=== PATIENT | female | born 1955 | race Asian ===

== ENCOUNTER 2016-08-02 17:13 | Emergency (ER) | payer SELFPAY ==
[~2016-08-02] VITALS: Ht 160 cm; Wt 52.2 kg
[2016-08-02 19:40] LABS: DEFINITIVE VIEW TRANSMISSION; Hematocrit 30.6 % (36.0-46.0); Hemoglobin 9.5 g/dL (12.2-16.2); Mean Corpuscular Hemoglobin 19.8 pg (28.0-32.0); Mean Corpuscular Volume 63.8 fL (80.0-100.0); Platelet Count (auto) 446 10^3/uL (140-450); Red Cell Distribution Width 19.9 % (11.6-16.0); SUSPECT VIEW TRANSMISSION; White Blood Cell 10.1 10^3/uL (4.4-10.8)
[2016-08-02 19:42] LABS: Metamyelocytes % 0; Myelocytes % 0; Promyelocytes % 0; Reactive Lymphocytes 0
[2016-08-02 19:53] LABS: Albumin 2.8 g/dL (3.4-5.0); BUN/Creatinine Ratio 25.4; Bilirubin, Total 0.7 mg/dL (0.2-1.0); Calcium 8.4 mg/dL (8.5-10.1); Potassium 3.5 mmol/L (3.5-5.1); Total Protein 6.7 g/dL (6.4-8.2)
[2016-08-02 21:29] LABS: Platelet Estimate Adequate
[2016-08-02 21:30] LABS: Anisocytosis Moderate; Burr Cells FEW; Hypochromia Marked; Microcytosis Marked; Ovalocytes FEW; Tear Drop Cells FEW
[2016-08-03] MEDS ORDERED: ONDANSETRON HCL 4 MG/2 ML VIAL IV ONE (00:45)
[2016-08-03] MEDS ORDERED: NALBUPHINE HCL 10 MG/1ml INJECTION IV ONE (00:45)
[2016-08-03] MEDS ORDERED: LORazepam 2MG/ML-1ML VIAL IV ONE ×2 (01:45→02:00)
[2016-08-03] MEDS: FLEET ENEMA(ADULT) 135 ML PR ONE ×2 (02:46→03:30)
[2016-08-03 04:03] VITALS: BP 112/76
== END 2016-08-03 04:24 | disposition home or self-care (01) ==
LOC: ER 17:30
DX: K59.00 Constipation, unspecified (principal); R10.31 Right lower quadrant pain; F17.210 Nicotine dependence, cigarettes, uncomplicated; F11.10 Opioid abuse, uncomplicated; R11.2 Nausea with vomiting, unspecified
CPT/HCPCS: 36415; 74176; 80053; 82150; 83690; 85007; 85027; 93005; 96374; 96375; 99285; J2300; J2405; J7030

== ENCOUNTER 2016-09-29 12:50 | Inpatient (IN) | payer OTHER ==
[~2016-09-29] VITALS: Ht 157.5 cm; Wt 41.9 kg
[2016-09-29 13:47] LABS: Basophils # (auto) 0 uL; Basophils % (auto) 0.4 % (0.0-2.0); CONDITION AutoValidated; DEFINITIVE SEE PRINTOUT; Eosinophils # (auto) 0 uL; Eosinophils % (auto) 0.1 % (0.0-7.0); Hematocrit 33.6 % (36.0-46.0); Hemoglobin 10.6 g/dL (12.2-16.2); Lymphocytes # (auto) 2.6 uL; Lymphocytes % (auto) 31.7 % (10.0-50.0); Mean Corpuscular Hgb Conc. 31.7 g/dL (32.0-36.0); Mean Corpuscular Volume 78.9 fL (80.0-100.0); Mean Platelet Volume 8.3 fL (7.4-10.4); Monocytes # (auto) 0.6 uL; Monocytes % (auto) 7.2 % (0.0-12.0); Neutrophils # (auto) 4.9 uL; Neutrophils % (auto) 60.6 % (37.0-80.0); SUSPECT SEE PRINTOUT; White Blood Cell 8.2 10^3/uL (4.4-10.8)
[2016-09-29 14:02] LABS: Platelet Count (auto) 767 10^3/uL (140-450)
[2016-09-29 14:10] LABS: Anisocytosis Moderate; Hypochromia Slight; Microcytosis Slight; Schistocytes MODERATE; Tear Drop Cells FEW
[2016-09-29 14:11] LABS: Large Platelets FEW; Platelet Estimate Increa
[2016-09-29 14:14] LABS: Albumin 2.9 g/dL (3.4-5.0); BUN/Creatinine Ratio 29.1; Bilirubin, Total 0.8 mg/dL (0.2-1.0); Calcium 8.3 mg/dL (8.5-10.1); Potassium 3.7 mmol/L (3.5-5.1); Total Protein 6.5 g/dL (6.4-8.2)
[2016-09-29] MEDS ORDERED: SODIUM CHLORIDE 0.9% 1,000 ML IV ONE (15:41)
[2016-09-29] MEDS ORDERED: MORPHINE SULFATE 4 MG/ML SYRG IV ONE (15:45)
[2016-09-29] MEDS ORDERED: ONDANSETRON HCL 4 MG/2 ML VIAL IV ONE (15:45)
[2016-09-29 16:02] LABS: Amylase 13 U/L (25-115)
[2016-09-29] MEDS ORDERED: IOHEXOL 300 MG/ML 100ML BOTTLE IJ ONE (16:34)
[2016-09-29 19:15] LABS: Urine Bilirubin Negative (Negative); Urine Blood Negative /uL (Negative); Urine Color Yellow (Yellow); Urine Glucose Normal (Normal); Urine Mucus FEW (None Seen); Urine Nitrite Negative (Negative); Urine RBC <1 /hpf (0 - 4); Urine Squamous Epithelial Cell FEW /hpf (<5); Urine Urobilinogen Normal (Negative)
[2016-09-29 19:33] LABS: Urine Ketone 2+ (Negative)
[2016-09-29] MEDS ORDERED: ONDANSETRON HCL 4 MG/2 ML VIAL IV PRN (22:00)
[2016-09-29] MEDS ORDERED: MAGNESIUM CITRATE SOLUTION 300 ML BTL PO ONE (22:00)
[2016-09-29] MEDS ORDERED: DOCUSATE SOD 100 MG CAP PO PRN (22:00)
[2016-09-29] MEDS ORDERED: HYDROcodone-ACET 5/325MG TAB PO PRN (22:00)
[2016-09-29] MEDS: SODIUM CHLORIDE 0.9% 1,000 ML IV SCH (22:46)
[2016-09-29 23:30] VITALS: BP 141/79
[2016-09-29 23:45] VITALS: BP 141/79
[2016-09-30] MEDS: MORPHINE SULF INJ 2 MG/ML SYRINGE 1ML IV PRN ×2 (00:08→08:14)
[2016-09-30 04:56] VITALS: BP 153/80
[2016-09-30] MEDS: SODIUM CHLORIDE 0.9% 1,000 ML IV SCH ×3 (05:41→20:58)
[2016-09-30 06:52] LABS: Basophils # (auto) 0 uL; Basophils % (auto) 0.4 % (0.0-2.0); CONDITION AutoValidated; DEFINITIVE SEE PRINTOUT; Eosinophils # (auto) 0 uL; Eosinophils % (auto) 0.7 % (0.0-7.0); Hemoglobin 9.9 g/dL (12.2-16.2); Lymphocytes % (auto) 31.5 % (10.0-50.0); Mean Corpuscular Hemoglobin 25.5 pg (28.0-32.0); Mean Corpuscular Hgb Conc. 31.9 g/dL (32.0-36.0); Mean Corpuscular Volume 80.1 fL (80.0-100.0); Mean Platelet Volume 8.8 fL (7.4-10.4); Monocytes # (auto) 0.6 uL; Monocytes % (auto) 9.3 % (0.0-12.0); Neutrophils # (auto) 3.6 uL; Neutrophils % (auto) 58.1 % (37.0-80.0); Platelet Count (auto) 518 10^3/uL (140-450); SUSPECT SEE PRINTOUT; White Blood Cell 6.2 10^3/uL (4.4-10.8)
[2016-09-30 06:54] LABS: Red Cell Distribution Width 34.5 % (11.6-16.0)
[2016-09-30 07:01] LABS: Albumin 2.5 g/dL (3.4-5.0); BUN/Creatinine Ratio 34.7; Bilirubin, Total 0.8 mg/dL (0.2-1.0); Calcium 8.1 mg/dL (8.5-10.1); Potassium 3.9 mmol/L (3.5-5.1); Total Protein 5.5 g/dL (6.4-8.2)
[2016-09-30 07:33] LABS: Anisocytosis Moderate; Hypochromia Moderate; Platelet Estimate Increased; Tear Drop Cells FEW
[2016-09-30 08:43] VITALS: BP 127/74
[2016-09-30] MEDS ORDERED: GASTROGRAFIN 120 ML SOL ONE (11:34)
[2016-09-30 13:16] VITALS: BP 122/84
[2016-09-30] MEDS: KETOROLAC TROMETH 30 MG/ML 1ML VIAL IV PRN (13:18)
[2016-09-30 16:35] VITALS: BP 109/69
[2016-09-30] MEDS: TEMAZEPAM 15 MG CAP PO PRN (20:58)
[2016-09-30 21:30] VITALS: BP 101/65
[2016-09-30] MEDS: BOOST PLUS 8 ounce PO SCH (22:00)
[2016-10-01 05:00] VITALS: BP 95/56
[2016-10-01] MEDS: SODIUM CHLORIDE 0.9% 1,000 ML IV SCH (05:30)
[2016-10-01] MEDS: BOOST PLUS 8 ounce PO SCH ×3 (05:30→22:00)
[2016-10-01 06:55] LABS: Basophils # (auto) 0 uL; Basophils % (auto) 0.4 % (0.0-2.0); CONDITION Y; DEFINITIVE SEE PRINTOUT; Eosinophils # (auto) 0.1 uL; Eosinophils % (auto) 1.1 % (0.0-7.0); Hematocrit 35.3 % (36.0-46.0); Hemoglobin 10.8 g/dL (12.2-16.2); Lymphocytes # (auto) 2.4 uL; Lymphocytes % (auto) 26.7 % (10.0-50.0); Mean Corpuscular Hemoglobin 25.6 pg (28.0-32.0); Mean Corpuscular Hgb Conc. 30.6 g/dL (32.0-36.0); Mean Corpuscular Volume 83.9 fL (80.0-100.0); Mean Platelet Volume 8.1 fL (7.4-10.4); Monocytes # (auto) 0.7 uL; Monocytes % (auto) 7.7 % (0.0-12.0); Neutrophils # (auto) 5.7 uL; Neutrophils % (auto) 64.1 % (37.0-80.0); Platelet Count (auto) 510 10^3/uL (140-450); SUSPECT SEE PRINTOUT; White Blood Cell 8.9 10^3/uL (4.4-10.8)
[2016-10-01 07:07] LABS: Red Cell Distribution Width 34.5 % (11.6-16.0)
[2016-10-01 07:27] LABS: BUN/Creatinine Ratio 34.6; Calcium 7.8 mg/dL (8.5-10.1)
[2016-10-01 08:04] LABS: Platelet Estimate Increased
[2016-10-01 08:05] LABS: Anisocytosis Moderate; Hypochromia Moderate; Ovalocytes FEW; Schistocytes FEW
[2016-10-01 08:35] VITALS: BP 95/65
[2016-10-01 08:41] LABS: Potassium 4.4 mmol/L (3.5-5.1)
[2016-10-01] MEDS: KETOROLAC TROMETH 30 MG/ML 1ML VIAL IV PRN ×2 (09:05→14:00)
[2016-10-01 12:21] VITALS: BP 99/60
[2016-10-01] MEDS ORDERED: SODIUM CHLORIDE 0.9% 1,000 ML IV SCH (13:08)
[2016-10-01 16:23] VITALS: BP 100/61
[2016-10-01] MEDS ORDERED: GOLYTELY 4L KIT PO ONE (19:15)
[2016-10-01] MEDS: TEMAZEPAM 15 MG CAP PO PRN (21:08)
[2016-10-01 21:33] VITALS: BP 130/78
[2016-10-02] MEDS ORDERED: GOLYTELY 4L KIT PO ONE (06:00)
[2016-10-02] MEDS ORDERED: MAGNESIUM CITRATE SOLUTION 300 ML BTL PO ONE (06:00)
== END 2016-10-01 23:45 | disposition left against medical advice (07) | DRG 394 ==
LOC: ER 12:50 → TELE 12:51 → TELE-EAST 23:20
PROVIDERS: ADMIT Emergency Medicine; ATTEND Internal Medicine
DX: K63.9 Disease of intestine, unspecified (principal); E44.0 Moderate protein-calorie malnutrition; M48.54XA Collapsed vertebra, not elsewhere classified, thoracic region, initial encounter for fracture; Z68.1 Body mass index [BMI] 19.9 or less, adult; F17.210 Nicotine dependence, cigarettes, uncomplicated; I70.0 Atherosclerosis of aorta; E04.9 Nontoxic goiter, unspecified; K56.41 Fecal impaction; D64.9 Anemia, unspecified; Z91.19 Patient's noncompliance with other medical treatment and regimen
CPT/HCPCS: 36415; 71010; 71260; 74177; 74250; 80048; 80053; 81001; 82150; 82378; 83690; 84439; 84443; 84481; 84484; 85025; 93005; 94761; 96374; 96375; J1885; J2405